=== PATIENT | male | born 1950 | race Caucasian/White ===

== ENCOUNTER 2017-04-08 06:52 | Day surgery (SDC) | payer MEDICARE, BC ==
--- NOTE | ~2017-04-08 | EGD ---
EGD REPORT [facility] [address] [id number] NAME: HARRY LESLIE : 46 STATUS : REG [facility] PAT#: [id number] AGE: 66 ADM/REG DATE : 04/08/17 MR#: [id number] REPORT SERV DATE: 04/08/17 DICTATED BY: ELIZABETH STYLES DATE: 04/08/17 REPORT STATUS : Draft TRANSCRIBED BY: [employer] DATE: 04/08/17 [facility] Center Patient Name: Harry Leslie Date of : 1950 Attending MD: ELIZABETH STYLES MD Procedure Date No Time: 04/08/2017 Procedure: Upper GI endoscopy Indications: Follow-up of Hdez's esophagus Referring MD: GEORGE DUVAL Medicines: See the Anesthesia note for documentation of the administered medications Complications: No immediate complications. Procedure: Pre-Anesthesia Assessment: - ASA Grade Assessment: III - A patient with severe systemic disease. After obtaining informed consent, the endoscope was passed under direct vision. Throughout the procedure, the patient's blood pressure, pulse, and oxygen saturations were monitored continuously. The GIF [id number] was introduced through the mouth, and advanced to the second part of duodenum. The upper GI endoscopy was accomplished without difficulty. The patient tolerated the procedure well. Findings: The examined duodenum was normal. Mild inflammation was found in the gastric antrum. Biopsies were taken with a cold forceps for histology. The cardia and gastric fundus were normal on retroflexion. A small hiatus hernia was present. There were esophageal mucosal changes consistent with short-segment Hdez's esophagus present in the lower third of the esophagus. The maximum longitudinal extent of these mucosal changes was 1 cm in length. Biopsies were taken with a cold forceps for histology. Impression: - Normal examined duodenum. - Gastritis. Biopsied. - Hiatus hernia. - Esophageal mucosal changes consistent with short-segment Hdez's esophagus. Biopsied. Recommendation: - Patient has a contact number available for emergencies. The signs and symptoms of potential delayed complications were discussed with the patient. Return to normal activities tomorrow. Written discharge EGD REPORT [address] [address] NAME: HARRY LESLIE : [birth year] STATUS : REG [facility] PAT#: [id number] AGE: 66 ADM/REG DATE : 04/08/17 MR#: [id number] REPORT SERV DATE: 04/08/17 DICTATED BY: ELIZABETH STYLES DATE: 04/08/17 REPORT STATUS : Draft TRANSCRIBED BY: [employer] DATE: 04/08/17 instructions were provided to the patient. - Regular diet. - Continue present medications. - FOR YOUR BIOPSY RESULTS: Please go to [email or web address] and register to receive your results via the portal. Your biopsy results will be posted there in about 7 to 10 days. IF you do not see result in 10 days, call office. - Repeat the upper endoscopy in 3 years for surveillance. - Return to my office in 1 year. Procedure Code(s): --- Professional --- 85060, Esophagogastroduodenoscopy, flexible, transoral; with biopsy, single or multiple Diagnosis Code(s): --- Professional --- K22.70, Hdez's esophagus without dysplasia K29.70, Gastritis, unspecified, without bleeding K44.9, Diaphragmatic hernia without obstruction or gangrene CPT copyright 2013 [employer]. All rights reserved. The codes documented in this report are preliminary and upon rehabilitation supervisor review may be revised to meet current compliance requirements. Elizabeth Styles MD ELIZABETH STYLES MD 04/08/2017 8:40 AM This report has been signed electronically. Number of Addenda: 0 Note Initiated On: 04/08/2017 8:17 AM Scope Withdrawal Time 0 hours 0 minutes 0 seconds [id number] [id number]
[~2017-04-08 06:52] MED LIST: ACTOS30 PO; ARAVA10 PO; ASAB PO; CALTRAT600 PO; CO Q-10100 MG PO; FLOMAX4 PO; GLUCOPHAGE1000 MG PO; LIPITOR20 PO; NEXIUM; PREDNISONE2.5 MG PO; PRINZIDE1 TA1 PO; PROSCAR5 PO; VITAMIN D31000 UNIT PO
== END 2017-04-08 23:59 | disposition home health service (06) ==
LOC: DMU 06:52
PROVIDERS: Internal Medicine Gastroenterology
PROC: 0DB38ZX Excision of Lower Esophagus, Via Natural or Artificial Opening Endoscopic, Diagnostic (ICD-10-PCS; 2017-04-08)
PROC: 0DB68ZX Excision of Stomach, Via Natural or Artificial Opening Endoscopic, Diagnostic (ICD-10-PCS; principal; 2017-04-08 09:00)
DX: K20.9 Esophagitis, unspecified (principal); K22.70 Barrett's esophagus without dysplasia; K44.9 Diaphragmatic hernia without obstruction or gangrene; I10 Essential (primary) hypertension; G43.909 Migraine, unspecified, not intractable, without status migrainosus; I25.10 Atherosclerotic heart disease of native coronary artery without angina pectoris; M06.9 Rheumatoid arthritis, unspecified; E78.00 Pure hypercholesterolemia, unspecified; K21.9 Gastro-esophageal reflux disease without esophagitis; M35.3 Polymyalgia rheumatica; E11.9 Type 2 diabetes mellitus without complications; Z95.1 Presence of aortocoronary bypass graft; Z87.891 Personal history of nicotine dependence; Z98.41 Cataract extraction status, right eye; Z98.42 Cataract extraction status, left eye; Z96.1 Presence of intraocular lens; Z98.890 Other specified postprocedural states
CPT/HCPCS: 82962; 88305